=== PATIENT | female | born 1990 | race Caucasian/White ===

== ENCOUNTER → 2020-09-14 07:59 | Outpatient (BNVA) | payer OTHER, SELFPAY | PROVIDERS: PCP Nurse Practitioner Family; Referring Provider Nurse Practitioner Family; Visit Provider Obstetrics & Gynecology ==

== ENCOUNTER 2021-12-16 10:17 | Outpatient (REF) | payer OTHER, SELFPAY ==
[2021-12-16 17:25] LABS: CT PCR NOT DETECTED (Not Detect.); NG PCR NOT DETECTED (Not Detect.)
[2021-12-17 11:11] LABS: BV Int Neg Control Negative (Negative); BV Int Pos Control Positive (Positive)
== END 2021-12-16 10:18 | disposition home or self-care (01) ==
LOC: HO.LNP 10:17
PROVIDERS: Visit Provider Advanced Practice Midwife
DX: Z32.01 Encounter for pregnancy test, result positive (principal); R10.2 Pelvic and perineal pain; N92.6 Irregular menstruation, unspecified
CPT/HCPCS: 81025; 87480; 87491; 87510; 87591; 87660

== ENCOUNTER 2022-01-05 15:08 | Outpatient (REF) | payer OTHER, SELFPAY ==
--- NOTE | ~2022-01-05 | US_ITS ---
EXAMINATION: US OBSTETRICAL ULTRASOUND CLINICAL INFORMATION: Irregular menstrual history. Check size and dates. COMPARISON: None. LMP: 11/06/2021. Gestational age by maternal dates is 8 weeks 4 days. Estimated date of delivery by maternal dates is 08/13/2022. TECHNIQUE: Transabdominal first trimester OB ultrasound FINDINGS: There is a single intrauterine gestational sac with visible yolk sac, embryo/fetus, and cardiac activity. There is no significant subchorionic hemorrhage or hematoma. HR: 153 beats per minute. CRL (crown rump length): 1.2 cm (7 weeks 3 days +/- 4 days). AMY (estimated date of delivery): 08/21/2022 +/- 4 days. MATERNAL ADNEXA: The right maternal ovary measures 2.5 x 2.4 x 2.4 cm. The left maternal ovary measures 3.5 x 2.5 x 2.3 cm. There is a small left ovarian cyst measuring 1.8 x 2.1 x 1.9 cm probably representing a corpus luteum. There is no significant maternal adnexal mass. No maternal pelvic ascites. US/US OB <= 14 weeks fetus IMPRESSION: 1. Single intrauterine gestation with ultrasound gestational age of 7 weeks 3 days +/- 4 days. 2. Estimated date of delivery is 08/21/2022 +/- 4 days. 3. No maternal adnexal mass or pelvic ascites.
== END 2022-01-05 15:09 | disposition home or self-care (01) ==
LOC: HO.HMGCX 15:08
PROVIDERS: Visit Provider Advanced Practice Midwife
DX: R10.2 Pelvic and perineal pain (principal); N92.6 Irregular menstruation, unspecified
CPT/HCPCS: 76801

== ENCOUNTER → 2022-01-18 09:47 | Outpatient (BNVA) | payer OTHER, SELFPAY | PROVIDERS: Visit Provider Advanced Practice Midwife | DX: Z34.91 Encounter for supervision of normal pregnancy, unspecified, first trimester (principal); Z3A.09 9 weeks gestation of pregnancy | CPT/HCPCS: 99212 ==